=== PATIENT | female | born 1950 | race Caucasian/White ===

== ENCOUNTER 2018-03-04 19:35 | Inpatient (IN) | payer OTHER ==
[~2018-03-04] VITALS: Ht 160 cm; Wt 73.7 kg
[2018-03-04 21:18] LABS: UA SPECIFIC GRAVITY >=1.030 (1.005-1.035); microscopic required? YES; urine erythrocyte NEGATIVE (NEGATIVE)
[2018-03-04 21:37] LABS: BASOPHIL % 0.2 % (0-2); PLATELET COUNT 263 x10^3mcL (130-400)
[2018-03-04 21:40] LABS: RED CELL DISTRIBUTION WIDTH 15.5 % (11.5-14.5)
[2018-03-04 22:05] LABS: POTASSIUM SERUM 4.3 mmol/L (3.5-5.1); SODIUM SERUM 136 mmol/L (136-145)
[2018-03-04 22:16] LABS: ALBUMIN 3.4 g/dL (3.4-5.0); ALKALINE PHOSPHATASE 99 U/L (46-116); ALT/SGPT 30 U/L (14-59); AST/SGOT 22 U/L (15-37); BILIRUBIN TOTAL 0.23 mg/dL (0.20-1.00)
[2018-03-04 22:25] LABS: CK-MB < 0.5 ng/mL (0-3.6); CREATINE KINASE 47 U/L (26-192)
[2018-03-04 22:27] LABS: CALCIUM 8.4 mg/dL (8.5-10.1); CARBON DIOXIDE 23.7 mmol/L (21-32); CHLORIDE SERUM 102 mmol/L (98-107); CREATININE SERUM 0.9 mg/dL (0.6-1.0); GFR1 > 60 mL/min; GLUCOSE SERUM 216 mg/dL (74-106)
[2018-03-04 23:57] VITALS: BP 127/70
[2018-03-05] MEDS ORDERED: LOT10 PO (00:32)
[2018-03-05] MEDS ORDERED: METFORMIN HCL1000 MG PO (00:32)
[2018-03-05] MEDS ORDERED: LIPI20 PO (00:32)
[2018-03-05] MEDS ORDERED: GLIPIZIDE XL10 M1 PO (00:34)
[2018-03-05] MEDS ORDERED: FERROUS SULFAT325 M2 PO (00:34)
[2018-03-05 02:13] LABS: RED BLOOD CELLS 3.91 M/mm3 (4.10-5.10)
[2018-03-05 02:34] LABS: CHOLESTEROL/HDL RATIO 2.9; MAGNESIUM 1.5 mg/dL (1.8-2.4); PHOSPHOROUS 3.4 mg/dL (2.5-4.9)
[2018-03-05 02:42] LABS: FREE T4 1.14 ng/dL (0.76-1.46); FREE THYROXINE INDEX 2.9 ug/dL (1.4-4.5); T4(THYROXINE) 8.4 ug/dL (4.7-13.3)
[2018-03-05 03:05] LABS: T3 TOTAL 0.82 ng/mL
[2018-03-05 03:19] LABS: TOTAL IRON BINDING CAPACITY 358 ug/dL (250-450)
[2018-03-05 03:21] LABS: IRON 32 ug/dL (50-170)
[2018-03-05 06:43] VITALS: BP 128/70
[2018-03-05 07:08] LABS: CALCIUM 7.5 mg/dL (8.5-10.1); CARBON DIOXIDE 20.7 mmol/L (21-32); CHLORIDE SERUM 106 mmol/L (98-107); CREATININE SERUM 0.8 mg/dL (0.6-1.0); GFR1 > 60 mL/min; GLUCOSE SERUM 178 mg/dL (74-106); POTASSIUM SERUM 4.1 mmol/L (3.5-5.1); SODIUM SERUM 137 mmol/L (136-145)
[2018-03-05 07:20] LABS: BASOPHIL % 0.1 % (0-2); PLATELET COUNT 254 x10^3mcL (130-400)
[2018-03-05 07:27] LABS: RED CELL DISTRIBUTION WIDTH 15.4 % (11.5-14.5)
[2018-03-05 09:20] VITALS: BP 105/70
[2018-03-05 13:41] VITALS: BP 126/84
[2018-03-05 17:37] VITALS: BP 126/84
[2018-03-05 17:43] VITALS: BP 111/72
== END 2018-03-05 18:35 | disposition home or self-care (01) | DRG 391 ==
LOC: ED 19:35 → DU 23:14
PROVIDERS: Emergency Medicine; Family Medicine; Student in an Organized Health Care Education/Training Program
DX: A08.4 Viral intestinal infection, unspecified (principal); N17.0 Acute kidney failure with tubular necrosis; G90.8 Other disorders of autonomic nervous system; Z88.8 Allergy status to other drugs, medicaments and biological substances; I10 Essential (primary) hypertension; E11.9 Type 2 diabetes mellitus without complications; Z90.49 Acquired absence of other specified parts of digestive tract; E86.0 Dehydration; E78.5 Hyperlipidemia, unspecified; I70.203 Unspecified atherosclerosis of native arteries of extremities, bilateral legs; D64.9 Anemia, unspecified; W18.39XA Other fall on same level, initial encounter; Y93.89 Activity, other specified; Y92.89 Other specified places as the place of occurrence of the external cause; Y99.8 Other external cause status
CPT/HCPCS: 82962; 83880; 84439; 87046; 87046-59; J2405; J2543; J3010; J3475; J7030; Q0092

== ENCOUNTER 2018-03-09 04:48 | Inpatient (IN) | payer OTHER ==
[~2018-03-09] VITALS: Ht 152.4 cm; Wt 68.3 kg
[~2018-03-09 04:48] MED LIST: FERROUS SULFAT325 M2 PO; GLIPIZIDE XL10 M1 PO; LIPI20 PO; LOT10 PO; METFORMIN HCL1000 MG PO
[2018-03-09 05:50] LABS: BASOPHIL % 0.2 % (0-2); PLATELET COUNT 290 x10^3mcL (130-400)
[2018-03-09 05:51] LABS: CALCIUM 8.9 mg/dL (8.5-10.1); CARBON DIOXIDE 22.5 mmol/L (21-32); CHLORIDE SERUM 98 mmol/L (98-107); CREATININE SERUM 0.9 mg/dL (0.6-1.0); GFR1 > 60 mL/min; GLUCOSE SERUM 309 mg/dL (74-106); POTASSIUM SERUM 4.1 mmol/L (3.5-5.1); SODIUM SERUM 135 mmol/L (136-145)
[2018-03-09 05:52] LABS: RED CELL DISTRIBUTION WIDTH 15.4 % (11.5-14.5)
[2018-03-09 05:55] LABS: ALBUMIN 3.9 g/dL (3.4-5.0); ALKALINE PHOSPHATASE 106 U/L (46-116); ALT/SGPT 46 U/L (14-59); AST/SGOT 31 U/L (15-37); BILIRUBIN TOTAL 0.28 mg/dL (0.20-1.00); TOTAL PROTEIN, SERUM 7.8 g/dL (6.4-8.2)
[2018-03-09] MEDS ORDERED: LOPERAMIDE HCL2 MG PO (06:11)
[2018-03-09] MEDS ORDERED: ZOCOR20 MG PO (06:11)
[2018-03-09] MEDS ORDERED: ONDANSETRON4 M3 PO (06:11)
[2018-03-09 11:28] LABS: MAGNESIUM 1.8 mg/dL (1.8-2.4)
[2018-03-09 11:43] LABS: CHOLESTEROL/HDL RATIO 3.2
[2018-03-09 11:49] LABS: FREE T4 1.42 ng/dL (0.76-1.46); FREE THYROXINE INDEX 3.7 ug/dL (1.4-4.5); T4(THYROXINE) 10.7 ug/dL (4.7-13.3)
[2018-03-09 12:26] LABS: T3 TOTAL 0.84 ng/mL
[2018-03-09 17:13] VITALS: BP 148/74
[2018-03-09 17:58] VITALS: BP 165/86
[2018-03-09 21:27] VITALS: BP 171/74
[2018-03-09 23:26] VITALS: BP 170/72
[2018-03-10] VITALS (13 sets, daily range): BP systolic 164–193; BP diastolic 66–92; Ht 152.4 cm; Wt 68.3 kg
[2018-03-10 03:33] LABS: UA SPECIFIC GRAVITY 1.025 (1.005-1.035); microscopic required? YES; urine erythrocyte TRACE (NEGATIVE)
[2018-03-10 03:42] LABS: AMPHETAMINE QUAL UR NONE DETECTED (NEG <=1000)
[2018-03-10 06:43] LABS: CALCIUM 8.3 mg/dL (8.5-10.1); CARBON DIOXIDE 21.9 mmol/L (21-32); CHLORIDE SERUM 102 mmol/L (98-107); CREATININE SERUM 0.9 mg/dL (0.6-1.0); GFR1 > 60 mL/min; GLUCOSE SERUM 261 mg/dL (74-106); MAGNESIUM 1.9 mg/dL (1.8-2.4); POTASSIUM SERUM 3.7 mmol/L (3.5-5.1); SODIUM SERUM 139 mmol/L (136-145)
[2018-03-10 07:01] LABS: BASOPHIL % 0.2 % (0-2); PLATELET COUNT 321 x10^3mcL (130-400); RED CELL DISTRIBUTION WIDTH 15.3 % (11.5-14.5)
[2018-03-11] VITALS (8 sets, daily range): BP systolic 144–189; BP diastolic 70–92
[2018-03-11 06:22] LABS: BASOPHIL % 0.2 % (0-2); PLATELET COUNT 357 x10^3mcL (130-400)
[2018-03-11 06:50] LABS: CALCIUM 8.7 mg/dL (8.5-10.1); CARBON DIOXIDE 24.3 mmol/L (21-32); CHLORIDE SERUM 100 mmol/L (98-107); CREATININE SERUM 0.8 mg/dL (0.6-1.0); GFR1 > 60 mL/min; GLUCOSE SERUM 225 mg/dL (74-106); POTASSIUM SERUM 3.3 mmol/L (3.5-5.1); SODIUM SERUM 135 mmol/L (136-145)
[2018-03-11 07:08] LABS: RED CELL DISTRIBUTION WIDTH 15.4 % (11.5-14.5)
[2018-03-11 10:06] LABS: CHOLESTEROL/HDL RATIO 2.7
[2018-03-12] VITALS (9 sets, daily range): BP systolic 133–174; BP diastolic 55–90
[2018-03-12 06:22] LABS: BASOPHIL % 0.2 % (0-2); PLATELET COUNT 338 x10^3mcL (130-400)
[2018-03-12 06:39] LABS: CALCIUM 8.3 mg/dL (8.5-10.1); CHLORIDE SERUM 98 mmol/L (98-107); CREATININE SERUM 0.7 mg/dL (0.6-1.0); GFR1 > 60 mL/min; GLUCOSE SERUM 201 mg/dL (74-106); MAGNESIUM 1.7 mg/dL (1.8-2.4); PHOSPHOROUS 2.3 mg/dL (2.5-4.9); POTASSIUM SERUM 3.4 mmol/L (3.5-5.1); SODIUM SERUM 134 mmol/L (136-145)
[2018-03-12 06:52] LABS: RED CELL DISTRIBUTION WIDTH 15.6 % (11.5-14.5)
[2018-03-13 06:19] LABS: BASOPHIL % 0.2 % (0-2); PLATELET COUNT 339 x10^3mcL (130-400)
[2018-03-13 06:24] LABS: CALCIUM 8.2 mg/dL (8.5-10.1); CARBON DIOXIDE 25.4 mmol/L (21-32); CHLORIDE SERUM 95 mmol/L (98-107); CREATININE SERUM 0.6 mg/dL (0.6-1.0); GFR1 > 60 mL/min; GLUCOSE SERUM 207 mg/dL (74-106); POTASSIUM SERUM 3.6 mmol/L (3.5-5.1); SODIUM SERUM 132 mmol/L (136-145)
[2018-03-13 06:29] VITALS: BP 173/85
[2018-03-13 06:46] VITALS: BP 128/62
[2018-03-13 07:29] LABS: RED CELL DISTRIBUTION WIDTH 14.9 % (11.5-14.5)
[2018-03-13 08:45] VITALS: BP 148/72; BP 175/83
[2018-03-13] MEDS ORDERED: METOPROLOL TART25 M1 PO (09:46)
[2018-03-13] MEDS ORDERED: ATORVASTATIN CA40 M1 PO (09:46)
[2018-03-13] MEDS ORDERED: NOR10 PO (09:47)
[2018-03-13] MEDS ORDERED: LOT10 PO (09:48)
[2018-03-13] MEDS ORDERED: ECO81 PO (09:48)
[2018-03-13 10:05] VITALS: BP 148/72
[2018-03-13] MEDS ORDERED: APAP/HYDROCODON1 T13 PO (10:16)
[2018-03-13] MEDS ORDERED: ONDANSETRON4 M3 PO (10:16)
== END 2018-03-13 10:39 | disposition home or self-care (01) | DRG 299 ==
LOC: ED 04:48 → MU 09:40 → DU 09:40 → MU 03-12 13:48
PROVIDERS: Emergency Medicine; Family Medicine; Family Medicine Sports Medicine
DX: E11.51 Type 2 diabetes mellitus with diabetic peripheral angiopathy without gangrene (principal); N17.0 Acute kidney failure with tubular necrosis; I16.0 Hypertensive urgency; E86.0 Dehydration; I10 Essential (primary) hypertension; E78.2 Mixed hyperlipidemia; D50.9 Iron deficiency anemia, unspecified; E66.9 Obesity, unspecified; Z68.30 Body mass index [BMI] 30.0-30.9, adult; R31.9 Hematuria, unspecified; A08.4 Viral intestinal infection, unspecified; E11.43 Type 2 diabetes mellitus with diabetic autonomic (poly)neuropathy; K31.84 Gastroparesis; Z23 Encounter for immunization
CPT/HCPCS: 82962; 83880; 84439; J0360; J1885; J2405; J2550; J2765; J3010; J3490; J7030; Q0092

== ENCOUNTER 2019-01-18 20:33 | Emergency (ER) | payer OTHER ==
[~2019-01-18] VITALS: Ht 157.5 cm; Wt 68.9 kg
[~2019-01-18 20:33] MED LIST changes: +APAP/HYDROCODON1 T13 PO; +ATORVASTATIN CA40 M1 PO; +ECO81 PO; +LOPERAMIDE HCL2 MG PO; +METOPROLOL TART25 M1 PO; +NOR10 PO; +ONDANSETRON4 M3 PO; +ZOCOR20 MG PO
[2019-01-18 20:38] VITALS: Ht 157.5 cm; Wt 68.9 kg
[2019-01-18 22:45] VITALS: BP 140/71
== END 2019-01-18 22:45 | disposition home or self-care (01) ==
LOC: ED 20:33
DX: J20.9 Acute bronchitis, unspecified (principal)
CPT/HCPCS: 82962

== ENCOUNTER 2019-10-25 14:11 | Emergency (ER) | payer OTHER ==
[~2019-10-25] VITALS: Ht 157.5 cm; Wt 73.0 kg
[2019-10-25 14:14] VITALS: Ht 157.5 cm; Wt 73.0 kg
[2019-10-25 14:39] VITALS: BP 183/67
== END 2019-10-25 14:40 | disposition home or self-care (01) ==
LOC: ED 14:11
DX: H66.92 Otitis media, unspecified, left ear (principal); I10 Essential (primary) hypertension; E11.9 Type 2 diabetes mellitus without complications; Z98.890 Other specified postprocedural states; Z90.710 Acquired absence of both cervix and uterus

== ENCOUNTER 2020-04-15 15:44 | Emergency (ER) | payer OTHER, SELFPAY ==
[~2020-04-15] VITALS: Ht 160 cm; Wt 73.0 kg
[2020-04-15 15:50] VITALS: Ht 160 cm; Wt 73.0 kg
[2020-04-15 21:36] VITALS: BP 169/78
== END 2020-04-15 21:36 | disposition home or self-care (01) ==
LOC: ED 15:44
DX: J98.01 Acute bronchospasm (principal); R11.2 Nausea with vomiting, unspecified; E11.9 Type 2 diabetes mellitus without complications; I10 Essential (primary) hypertension; Z20.828 Contact with and (suspected) exposure to other viral communicable diseases; Z98.890 Other specified postprocedural states; Z90.49 Acquired absence of other specified parts of digestive tract
CPT/HCPCS: 82962; 87804; Q0092; U0003-CS